=== PATIENT | male | born 2000 | race Asian ===

== ENCOUNTER 2022-12-22 17:07 | Emergency (ER) | payer OTHER, SELFPAY ==
[2022-12-22 17:15] VITALS: BP 117/71; PULSE 86; RESP 18; TEMP 37.5; O2SAT 100; BMI 28.7
[2022-12-22 22:34] VITALS: PULSE 81; O2SAT 99
[2022-12-22 23:00] VITALS: PULSE 74; O2SAT 98
[2022-12-22 23:30] VITALS: PULSE 75; O2SAT 99
[2022-12-23] VITALS: PULSE 66; O2SAT 98
--- NOTE | 2022-12-23 00:24 | DI.RAD.S_ITS ---
PROCEDURE: XR TOE RT MIN 2V INDICATIONS: injury TECHNIQUE: AP view of the foot and two views of the great toe acquired. COMPARISON: None. FINDINGS: Bones: No fractures or dislocations. No suspicious bony lesions. Soft tissues: No suspicious soft tissue densities. IMPRESSION: 1. No fracture or dislocation. Dictated by: Carlos Jeong M.D. on 12/23/2022 at 1:08 Approved by: Carlos Jeong M.D. on 12/23/2022 at 1:08
[2022-12-23 00:30] VITALS: PULSE 66; O2SAT 99
== END 2022-12-23 01:13 | disposition left against medical advice (07) ==
PROVIDERS: Emergency Provider Emergency Medicine
DX: S99.921A Unspecified injury of right foot, initial encounter (principal); Y93.67 Activity, basketball
CPT/HCPCS: 73660; 99281